=== PATIENT | female | born 1975 | race Caucasian/White ===

== ENCOUNTER 2019-03-26 19:09 | Inpatient (IN) ==
[2019-03-26] MEDS ORDERED: ASPIRIN PO ONE (19:29)
[2019-03-26] MEDS ORDERED: NITROGLYCERIN TOP ONE (19:36)
[2019-03-26] MEDS ORDERED: MORPHINE IV ONE (19:36)
[2019-03-26] MEDS ORDERED: ZOFRAN IV ONE (19:36)
--- NOTE | 2019-03-26 20:12 | Diag Imaging Result Doc PS360 ---
EXAM: CHEST-2 VIEWS INDICATION: CP TECHNIQUE: 2 views COMPARISON: 12/12/2018 FINDINGS: The lungs are grossly clear. There is no discrete pleural fluid collection or pneumothorax. There are stable CABG changes. The cardiomediastinal silhouette and central vasculature are unremarkable, otherwise. IMPRESSION: No evidence of acute pathology by plain radiograph. Electronically signed by Arturo Che 03/26/2019 8:10 PM
[2019-03-26 20:58] LABS: INR 0.91; PROTIME 12.7 Seconds (11.0-16.0)
[2019-03-26 20:59] LABS: PTT 26.9 Seconds (22.3-41.8)
[2019-03-26 21:07] LABS: BASO# 0.06 X1000 (0.0-0.2); BASO% 0.7 % (0.0-0.8); EOS# 0.35 X1000 (0.0-0.7); EOS% 3.9 % (0.0-10.0); HEMATOCRIT 37.7 % (37.0-47.0); HEMOGLOBIN 12.9 g/dL (12.0-16.0); IMM GRAN# 0.04 X1000 (0.0-0.04); IMM GRAN% 0.4 % (0.0-0.5); LYMPH% 35.8 % (20.5-51.1); MCH 28.1 PG (27-31); MCHC 34.2 g/dL (33-37); MCV 82.1 FL (81-99); MONO# 1.02 X1000 (0.11-0.59); MONO% 11.4 % (1.7-9.3); NEUT# 4.27 X1000 (1.4-6.5); NEUT% 47.8 % (42.2-75.2); PLT 283 X1000 (130-400); RBC 4.59 XMIL (4.2-5.4); WBC 8.94 X1000 (4.8-10.8)
[2019-03-26 21:26] LABS: ALBUMIN 3.8 g/dL (3.5-5.0); CALCIUM 8.7 mg/dL (8.8-10.2); CREATININE 1.7 mg/dL (0.5-0.9); POTASSIUM 5.6 mmol/L (3.5-5.1); TOTAL BILIRUBIN 0.2 mg/dL (0.20-1.00)
[2019-03-26] MEDS ORDERED: HUMULIN R IV ONE ×2 (21:30→23:12)
[2019-03-26] MEDS ORDERED: NS 1,000 ML IV ONE (21:36)
[2019-03-26] MEDS ORDERED: LASIX IV ONE (21:36)
[2019-03-26] MEDS ORDERED: LOVENOX SUBQ ONE (21:44)
--- NOTE | 2019-03-26 21:45 | PROVIDER DOCUMENTATION ---
This chart was entered by Oscar Brady Scribe, acting as scribe for Isaiah Manley MD. HPI-Musculoskeletal Pain/Inj - GENERAL Chief Complaint: Generalized Pain Stated Complaint: CHEST PAIN Time Seen by Provider: 03/26/19 19:26 Source: patient - HX OF PRESENT ILLNESS-MUSKULOSKELTAL Nature of Presenting Problem: Pt is a 43 yof who presents to the ED with a CC of neck pain. Pt states she is having neck pain and describes the pain as an ache. Pt states it hurts to turn her neck and the pain comes and goes. Pt states she had quadruple bypass on December 16, and previously had a heart attack and had two stents inserted. Pt also complains of feeling nauseas without vomiting and states she constantly feels hot and sweaty. Pt states she is a former smoker and states she quit three months ago. Quality of Pain: reports: aching Severity in ED: mild Onset/Duration: 24 hours ago Timing: still present Any recent injury?: No Locality of Occurance: Home Similar Symptoms Previously?: No Recently seen or treated by another doctor?: No - BACK & NECK PAIN/INJURY Back/Neck Pain Location: reports: C-spine Context / Method of Injury: reports: unknown History of Chronic Neck or Back Pain?: No Review of Systems - Adult - REVIEW OF SYSTEMS - ADULT Constitutional: reports: see HPI. denies: chills, fever, fatique, night sweats, weight gain Eyes: reports: no symptoms reported Ears, Nose, Mouth & Throat: reports: no symptoms reported Cardiovascular: reports: see HPI Respiratory: reports: no symptoms reported Gastrointestinal: reports: see HPI, nausea. denies: vomiting Genitourinary: reports: no symptoms reported Musculoskeletal: reports: see HPI, neck pain Integumentary: reports: no symptoms reported Neurological: reports: no symptoms reported Psychiatric: reports: no symptoms reported Endocrine: reports: no symptoms reported Hematologic/Lymphatic: reports: no symptoms reported Allergic/Immunologic: reports: no symptoms reported All Other Systems: Reviewed and Negative Past History - Adult - PAST MEDICAL HISTORY-ADULT Review of Records: reports: Old Records Reviewed, Nursing Assessment Review, M edications Reviewed, Social history reviewed & non-contributory. Major Childhood Illnesses: reports: denies history Cardiovascular: reports: cardiac disease, HTN, NV, other Respiratory: reports: asthma Gastrointestinal: reports: denies history Obstetrical/Gynecological: reports: denies history Genitourinary: reports: denies history Musculoskeletal: reports: chronic pain Neurological: reports: denies history Psychiatric: reports: denies history Endocrine/Immune: reports: Diabetes Diabetes Type: Type 1 Other Conditions: reports: other - PRIOR SURGERIES/PROCEDURES Surgical/Procedure History: reports: hysterectomy, BTL, , other - IMMUNIZATION STATUS Childhood Immunizations: See Nurse Assessment Flu Vaccine: See Nurse Assessment - FAMILY HISTORY Family History: reviewed, not pertinent - SOCIAL HISTORY Smoking: non-smoker, quit less than 1 year (3 months) Substance Use: none/never, denies Alcohol Use Frequency: never Physical Exam-Injury Related - Physical Exam-Injury Related Initial Vital Signs Reviewed: Yes General Appearance: appears well, alert, mild distress. negative: severe distress, cachetic, obese, anxious, lethargic, slow to respond, obtunded, combative Eyes: PERRL/EOMI. negative: photophobia, sclera injected, scleral icterus Neck: limited range of motion, pain on movement, tender lateral, tender midline. negative: non-tender, full range of motion, ecchymosis, muscle spasm, thyromegaly Respiratory: chest non-tender, lungs clear, normal breath sounds, no pleuratic chest pain, no respiratory distress, no accessory muscle use. negative: accessory muscle use, crackles, rales, rhonchi, stridor, wheezing, dull on percussion, prolonged expiration Cardiovascular: normal peripheral pulses, regular rate, rhythm, no edema, no gallop, no JVD, no murmur. negative: tachycardia, diastolic murmur, extra beats, friction rub, irregularly irregular Abdominal Exam: non tender, soft. negative: rebound, tenderness, hernia, mass, hepatomegaly, splenomegaly Extremity: normal range of motion, non-tender. negative: calf tenderness, deformity, erythema, inflammation, joint effusion Integumentary: normal color, warm/dry. negative: jaundice, mottled, pallor, petechiae, purpura, rash, swelling Neurologic: grossly normal, no motor/sensory deficits. negative: abnormal gait, aphasia, EOM palsy, facial droop, focal weakness, motor weakness Psych/Mental Status: normal mood/affect, normal thought content, normal thought process, oriented x 3. negative: disoriented x 3, anxious, disheveled, depressed affect Progress - PLAN OF CARE/RESULTS Progress/Plan/Lab Results: Vital Signs - 8 hr 03/26/19 19:12 03/26/19 20:52 Temperature 98.4 F Pulse Rate 80 75 Respiratory Rate 18 18 Blood Pressure 161/84 112/65 O2 Sat by Pulse Oximetry 100 97 Laboratory Results - last 24 hr 03/26/19 03/26/19 03/26/19 19:50 19:50 19:50 WBC 8.94 RBC 4.59 Hgb 12.9 Hct 37.7 MCV 82.1 MCH 28.1 MCHC 34.2 RDW Std Deviation 14.0 Plt Count 283 MPV Not Reportable Immature Gran % (Auto) 0.4 Neut % (Auto) 47.8 Lymph % (Auto) 35.8 Tyler % (Auto) 11.4 H Eos % (Auto) 3.9 Baso % (Auto) 0.7 Immature Gran # (Auto) 0.04 Neut # (Auto) 4.27 Lymph # (Auto) 3.20 Tyler # (Auto) 1.02 H Eos # (Auto) 0.35 Baso # (Auto) 0.06 Segmented Neutrophils Cancelled Band Neutrophils Cancelled Lymphocytes Cancelled Monocytes Cancelled Eosinophils Cancelled Basophils Cancelled Metamyelocytes Cancelled Myelocytes Cancelled Promyelocytes Cancelled Nucleated RBCs Cancelled Atypical Lymphocytes Cancelled Blast Cells Cancelled Hypochromia Cancelled Vacuolization Cancelled Toxic Granulation Cancelled Dohle Bodies Cancelled Large Platelets Cancelled Polychromasia Cancelled Poikilocytosis Cancelled Basophilic Stippling Cancelled Anisocytosis Cancelled Microcytosis Cancelled Macrocytosis Cancelled Spherocytes Cancelled Sickle Cells Cancelled Target Cells Cancelled Ovalocytes Cancelled Stomatocytes Cancelled Null-[place] Bodies Cancelled Shanon Cells Cancelled Unidentified Cells Cancelled Schistocytes Cancelled PT INR PTT (Actin FS) Sodium 128 L Potassium 5.6 H Chloride 95 L Carbon Dioxide 21 L Anion Gap 12 BUN 37 H Creatinine 1.7 H Estimated GFR/1.73 m2 33 BUN/Creatinine Ratio 22 Glucose 560 H* Calculated Osmolality 291 Calcium 8.7 L Total Bilirubin 0.20 AST < 5 L ALT < 5 L Alkaline Phosphatase 198 H Creatine Kinase 58 Troponin T [id number] Pept 9733 H Total Protein 7.0 Albumin 3.8 Globulin 3.0 Albumin/Globulin Ratio 1.0 Acetone Level 03/26/19 03/26/19 03/26/19 19:50 19:50 19:50 WBC RBC Hgb Hct MCV MCH MCHC RDW Std Deviation Plt Count MPV Immature Gran % (Auto) Neut % (Auto) Lymph % (Auto) Tyler % (Auto) Eos % (Auto) Baso % (Auto) Immature Gran # (Auto) Neut # (Auto) Lymph # (Auto) Tyler # (Auto) Eos # (Auto) Baso # (Auto) Segmented Neutrophils Band Neutrophils Lymphocytes Monocytes Eosinophils Basophils Metamyelocytes Myelocytes Promyelocytes Nucleated RBCs Atypical Lymphocytes Blast Cells Hypochromia Vacuolization Toxic Granulation Dohle Bodies Large Platelets Polychromasia Poikilocytosis Basophilic Stippling Anisocytosis Microcytosis Macrocytosis Spherocytes Sickle Cells Target Cells Ovalocytes Stomatocytes Null-[place] Bodies Shanon Cells Unidentified Cells Schistocytes PT 12.7 INR 0.91 PTT (Actin FS) 26.9 Sodium Potassium Chloride Carbon Dioxide Anion Gap BUN Creatinine Estimated GFR/1.73 m2 BUN/Creatinine Ratio Glucose Calculated Osmolality Calcium Total Bilirubin AST ALT Alkaline Phosphatase Creatine Kinase Troponin T < 0.010 [id number] Pept Total Protein Albumin Globulin Albumin/Globulin Ratio Acetone Level NEGATIVE Orders Category Date Time Status Cardiac Monitoring DIRECTED Care 03/26/19 19:29 Active Oxygen Therapy- ED Nursing DIRECTED Care 03/26/19 19:29 Active Saline Loc NOW Care 03/26/19 19:29 Active CHEST-2 VIEWS [RAD] Stat Exams 03/26/19 19:29 Completed ACETONE SERUM [CHEM] Stat Lab 03/26/19 19:50 Completed CBC WITH ELECTRONIC DIFF [HEME] Stat Lab 03/26/19 19:50 Completed CK PROFILE [SP CHEM] Stat Lab 03/26/19 19:50 Completed COMPREHENSIVE METABOLIC PANEL [CHEM] Stat Lab 03/26/19 19:50 Completed PRO B-NATRIURETIC PEPTIDE Stat Lab 03/26/19 19:50 Completed PROTIME WITH INR [COAG] Stat Lab 03/26/19 19:50 Completed PTT [COAG] Stat Lab 03/26/19 19:50 Completed TROPONIN T Stat Lab 03/26/19 19:50 Completed 0.9% Sodium Chloride Inj [Ns] 1,000 ml Med 03/26/19 21:36 Active IV 999 mls/hr Aspirin Med 03/26/19 19:29 Discontinued 325 mg PO NOW ONE Furosemide [Lasix] Med 03/26/19 21:36 Discontinued 60 mg IV NOW ONE Insulin Human Regular [Humulin R] Med 03/26/19 21:30 Discontinued 10 unit IV NOW ONE Morphine Med 03/26/19 19:36 Discontinued 2 mg IV NOW ONE Nitroglycerin Med 03/26/19 19:36 Discontinued 1 inch TOP NOW ONE Ondansetron [Zofran] Med 03/26/19 19:36 Discontinued 4 mg IV NOW ONE CP/SOB/Palp >45 yrs of Age Stat Oth 03/26/19 19:29 Ordered Result Diagrams: 03/26/19 19:50 03/26/19 19:50 - REASSESSMENT Reassessment #1 Time Reassessed: 21:34 Status: improving (Patient sleeping, when awakened by me, states she still hurts a little in her neck and shoulders. Has been given ASA, NTP, morphine/zofran. Blood sugar is 560, given IV insulin and IVF. Because of heart disease and elevated BNP, will also give lasix.) - EKG 1 Time of EKG reading by physician:: 19:28 EKG Read and Signed by:: Isaiah Manley EKG Interpretation (*Must complete 3 of following elements*): Abnormal (Possible left artrial enlargement; ST & T wave abnormality, consider inferolateral ischemia; Abnormal ECG) Rate: 78 Rhythm: NSR [place]: left QRS: normal [place] Interval: normal ST Wave: non-specific ST changes Prior EKG Comparison: changes noted - XRAY 1 XRAY: Bilateral XRAY Study: Chest Impression: See EMR Report (EXAM: CHEST-2 VIEWS INDICATION: CP TECHNIQUE: 2 views COMPARISON: 12/12/2018 FINDINGS: The lungs are grossly clear. There is no discrete pleural fluid collection or pneumothorax. There are stable CABG changes. The cardiomediastinal silhouette and central vasculature are unremarkable, otherwise. IMPRESSION: No evidence of acute pathology by plain radiograph. Electronically signed by Arturo Che 03/26/2019 8:10 PM 03/26/192009 Interpreting Physician: Arturo Che MD Dictated Date/Time: 03/26/192008 cc: Isaiah Manley MD; None,PCP) - CONSULTS/PCP/HOSPITALIST Notification #1 *Consult/PCP/Hospitalist*: Luiz paged at [phone] Time Discussed: 21:39 Reason/Comments: Please send to [facility] for admission/observation Consult Disposition: Will see in ED #2 Consult: Suraj paged at 2139 Time Discussed: 21:43 Consult Disposition: Admit (to [facility]) Departure - Departure Date of Disposition Decision: 03/26/19 Time of Disposition Decision: 21:43 DIAGNOSIS: 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 These instructions are being provided to you so you can have an understanding of how t o care for yourself upon discharge. Upon discharge from the Emergency Department, you are responsible for making arrangements for follow-up care by a physician of your choice. Take all prescribed medications as directed. Return to the Emergency Department immediately for any new or worsening symp toms. You may call the Physician Referral phone number at [phone] to obtain a list of Physicians who are taking new patients. Referrals and Follow-Ups: None,PCP [Primary Care Provider] - - Critical Care Note This patient required my direct & personal management of CC.: Yes Total Time (mins): 40 ([facility] in peril) Critical Care Statement: This patient required my direct personal management to treat or rule out processes, the absence of which, could potentiallly result in sudden, clinically significant life or limb threatening deterioration. Attestation - Physician/ PATRICIA Attestation Patient care was provided by Advanced Practice Provider:: No The physician spent face to face time with patient:: Yes Advanced Practice Provider documentation review:: Supervising physician onsite and consulted in the evaluation and care of this patient. The physician did have a face to face encounter with the patient. This chart was documented by the indicated scribe, (Oscar Brady, Tj) and accurately reflects the services I performed and decisions made by me, Isaiah Manley MD, as attested by the provider's signature.
[2019-03-27] MEDS ORDERED: ZOFRAN IV PRN (02:03)
[2019-03-27] MEDS ORDERED: HUMULIN R SUBQ ONE (03:36)
--- NOTE | 2019-03-27 04:08 | HISTORY AND PHYSICAL ---
PRIMARY CARE PHYSICIAN: None. CHIEF COMPLAINT: Chest pain. HISTORY OF PRESENTING ILLNESS: A 43-year-old female with a history of coronary disease, asthma, diabetes mellitus type 1, hypertension, who underwent coronary artery bypass recently. Had presented to the emergency department with persistent chest pain. She was initially seen at [facility]. She was given nitroglycerin and morphine which did help improve the chest pain somewhat. Her case was discussed with Cardiology, who recommended the patient be transferred to [facility] for further evaluation and management. At time of my examination, the patient still complained of chest pain but denied any headache, fever, chills, nausea, vomiting, diarrhea, hemoptysis, or weight changes. PAST MEDICAL HISTORY: Includes coronary artery disease, asthma, diabetes mellitus type 1 and hypertension. PAST SURGICAL HISTORY: Coronary artery bypass, hysterectomy, and hemorrhoidectomy. ALLERGIES: Phenergan and tramadol. CURRENT MEDICATIONS: Include aspirin 325 mg p.o. daily, Lipitor 40 mg p.o. at bedtime, gabapentin 300 mg p.o. daily, Novolin 70/30 of 20 units in the morning and 25 units at night, [place] 7.5 one p.o. q.6 hours, lisinopril 2.5 mg p.o. at bedtime, metoprolol 25 mg p.o. daily. SOCIAL HISTORY: She is a former smoker. No history of alcohol or illicit drug use. FAMILY HISTORY: Positive for coronary artery disease in mother and father. REVIEW OF SYSTEMS: Fourteen point review of systems as listed in HPI. Other systems negative. PHYSICAL EXAMINATION: GENERAL: Cooperative, friendly female. She is resting more comfortably now. VITAL SIGNS: Temperature 97.9 degrees, pulse 80, respirations 20, blood pressure 117/68. HEENT: Atraumatic, normocephalic. Extraocular movements intact. PERRLA. NECK: No masses. CHEST: Bibasilar rales. CARDIOVASCULAR: Regular rate and rhythm. ABDOMEN: Soft, positive bowel sounds. EXTREMITIES: No edema. NEUROLOGIC: She is awake, alert, oriented x3. GENITOURINARY: No bladder distention. SKIN: Warm. LABORATORIES AND STUDIES: Troponin 0.010. ProBNP 9073. Sodium 128, potassium 5.6, chloride 95, CO2 is 21, BUN is 37, creatinine 1.7, glucose 560. WBCs 8.94, hemoglobin 12.9, hematocrit 37.7, platelets 283,000. Chest x-ray, no evidence of any acute pathology. ASSESSMENT: A 43-year-old female with a history of coronary artery disease, diabetes mellitus type 1 and hypertension, who had presented initially to [facility] due to patient having persistent chest pain. She described it as pressure-like. Her case was discussed with Cardiology, who recommended patient be transferred to [facility] for further evaluation and management. 1. Unstable angina. 2. Coronary artery disease. 3. Diabetes mellitus type 1 with hyperglycemia. 4. Hypertension. PLAN: 1. We will admit patient to [facility]. 2. Continue with cardiac workup. 3. We will trend troponin. 4. We will use nitroglycerin and morphine p.r.n. chest pain. 5. We will consult Cardiology. 6. We will monitor blood glucose and put patient on sliding scale insulin regimen. 7. Monitor blood pressure. Resume antihypertensive agent. 8. We will put patient on DVT prophylaxis with Lovenox. 9. We will continue to follow, and reassess and make further recommendation based on patient's clinical course. cc: Tye Ruelas MD
[2019-03-27] MEDS: MORPHINE IV PRN ×4 (04:16→23:56)
[2019-03-27] MEDS: HEPARIN SUBQ SCH ×2 (06:19→16:28)
[2019-03-27] MEDS: HUMULIN R SUBQ SCH ×4 (06:19→20:50)
[2019-03-27] MEDS: NEURONTIN PO SCH (08:39)
[2019-03-27] MEDS ORDERED: ASPIRIN PO SCH (09:00)
[2019-03-27] MEDS: LOPRESSOR PO SCH ×2 (09:02→21:16)
--- NOTE | 2019-03-27 09:24 | EKG Report ---
Test Performed on : 03/26/2019 7:19:16 PM Test Reason : ER Blood Pressure : / mmHG Vent. Rate : 078 BPM Atrial Rate : 078 BPM P-R Int : 148 ms QRS Dur : 088 ms QT Int : 382 ms P-R-T Axes : 053 020 158 degrees QTc Int : 435 ms Normal sinus rhythm. Possible Left atrial enlargement ST & T wave abnormality, consider inferolateral ischemia Abnormal ECG When compared with ECG of 12-DEC-2018 19:41, T wave inversion more evident in Lateral leads Unconfirmed Result
--- NOTE | 2019-03-27 10:02 | PROGRESS NOTE ---
DATE: 03/27/2019 SUBJECTIVE: Patient reports persistent chest pain is gone. She reports only is on mild to moderate neck pain. Denies any other complaints. OBJECTIVE: Vital Signs: Temperature 98.1 degrees, heart rate 82, respiratory rate 20, blood pressure 132/73, O2 saturation 99% on room air. General: This is a 43-year-old female lying in bed, in no acute distress. Cardiovascular: S1, S2 heard. No murmurs, gallops, or rubs. Regular rate and rhythm. Respiratory: Minimal bibasilar rales but patient is not using any accessory muscles or having work of breathing. Abdomen: Soft, nontender to palpation. Bowel sounds present. No organomegaly. No clubbing, cyanosis, or edema. Peripheral pulses present in both legs. Neurological: Patient is alert, oriented x3. Moves 4 extremities. LABORATORY DATA: Reviewed. There is no troponins checked, just 1 has been done yesterday around 7:50 p.m. ASSESSMENT/PLAN: 1. Unstable angina. 2. Coronary artery disease with recent coronary artery bypass grafting on December 2018. 3. Diabetes mellitus type 2 with hyperglycemia. 4. Hypertension. Patient has been admitted to the hospital for chest pain. She has a recent coronary artery bypass grafting done by Dr. Haji at [facility] on December 2018 and she had a recent follow up at the end of February 2019. At this time, considering her medical conditions we have also consulted cardiology. Troponin has not been trended yet so we are going to start today 3 more sets. We are going to check an echocardiogram summary. We will monitor this patient closely. I think considering her high risk for acute coronary syndrome we will need to do a Lexiscan tomorrow. The patient will be on nothing by mouth since midnight. For blood pressure we will continue with current management. cc: MD Tye Ortiz MD MTDD
--- NOTE | 2019-03-27 15:13 | CONSULTATION ---
DATE OF CONSULTATION: 03/27/2019 IMPRESSION: 1. Neck pain. Clinical presentation atypical for myocardial ischemia. 2. Atherosclerotic coronary disease. B. Status post previous coronary angioplasty/stenting approximately 4 years ago. B. Status post more recent coronary bypass grafting approximately 4 months ago. Is noteworthy the patient's anginal equivalent is described as nausea, bilateral arm discomfort and neck discomfort radiating to the jaw without chest discomfort. 3. Previous cigarette use, discontinued 4 months ago. 4. Insulin-dependent diabetes mellitus for many years. 5. Chronic kidney disease. 6. Hypertension. RECOMMENDATIONS: Agree with plans to pursue noninvasive cardiac workup with echocardiography and pharmacologic myocardial perfusion study. Unfortunately, patient has had caffeine this morning and pharmacologic myocardial perfusion study has been postponed until tomorrow. HISTORY: This 43-year-old white female with past history of atherosclerotic coronary disease as outlined above, previous chronic cigarette use discontinued 4 months ago, insulin-dependent diabetes mellitus for many years, chronic kidney disease, hypertension, was admitted through emergency room for evaluation of symptoms suspicious for possible myocardial ischemia. She relates that her symptoms related to her heart in the past had consisted of nausea, bilateral arm discomfort with radiation to the neck and jaw. This has not recurred since her bypass. However she has had some neck discomfort of late. She describes a pain in the posterior neck that can last hours and seems to be worse if she is sitting up or standing but seems to be better she is lying down. There have been no other associated symptoms. Discomfort may last hours at a time. She is not aware of any previous neck or spine problems. PAST MEDICAL HISTORY: 1. Atherosclerotic coronary disease as outlined above. 2. Insulin-dependent diabetes mellitus. 3. Hypertension. 4. Chronic kidney disease. Current creatinine 1.7. PAST SURGICAL HISTORY: Includes coronary bypass grafting, hysterectomy, and hemorrhoidectomy. ALLERGIES: She is allergic or intolerant of Phenergan and tramadol. MEDICATIONS PRIOR TO ADMISSION: As listed. Hyperlipidemia. SOCIAL HISTORY: She quit smoking 4 months ago. She does not use alcohol. She is disabled. FAMILY HISTORY: Positive for coronary disease and diabetes mellitus. REVIEW OF SYSTEMS: Pulmonary: Negative. Gastrointestinal: Negative. Constitutional: Negative. Remainder review of systems negative/noncontributory with 14 total systems reviewed. PHYSICAL EXAMINATION: General: This is a thin middle-aged white female in no distress on room air. Vital signs: Blood pressure 94/59, heart rate 90 and regular. Oxygen saturation 97% on nasal cannula oxygen. HEENT: Extraocular movements intact. Mucous membranes are moist. Neck: Supple without jugular venous distention. There are no carotid bruits. Chest: Clear to auscultation. Cardiac: Reveals a regular rate and rhythm without appreciable rub or gallop. Abdomen: Soft. Bowel sounds normal. Extremities: Without edema. Neurologic: Reveals her to be alert and fully oriented. Speech is fluent. She moves all 4 extremities equally well. DATA: 12-lead EKG demonstrates sinus rhythm, left atrial abnormality and ST and T-wave abnormality, consider lateral ischemia. LABORATORY DATA: Includes white blood cell count 8.94, hematocrit 37.7, hemoglobin 12.9, platelet count 283,000. Sodium 128, potassium 5.6, chloride 95, BUN 37, creatinine 1.7, carbon dioxide 21, glucose 560. Initial troponin T less than 0.01. cc: MD Tye Vinson MD
[2019-03-27] MEDS: LIPITOR PO SCH (21:15)
[2019-03-27] MEDS: PRINIVIL PO SCH (21:15)
[2019-03-28] MEDS: HUMULIN R SUBQ SCH (06:09)
[2019-03-28] MEDS: HEPARIN SUBQ SCH ×2 (06:09→16:12)
[2019-03-28 06:12] LABS: BASO# 0.03 X1000 (0.0-0.2); BASO% 0.2 % (0.0-0.8); EOS# 0.37 X1000 (0.0-0.7); EOS% 2.8 % (0.0-10.0); HEMATOCRIT 42.4 % (37.0-47.0); HEMOGLOBIN 13.7 g/dL (12.0-16.0); IMM GRAN# 0.02 X1000 (0.0-0.04); IMM GRAN% 0.2 % (0.0-0.5); LYMPH# 3.13 X1000 (1.2-3.4); LYMPH% 23.8 % (20.5-51.1); MCH 26.6 PG (27-31); MCHC 32.3 g/dL (33-37); MCV 82.2 FL (81-99); MONO# 0.96 X1000 (0.11-0.59); MONO% 7.3 % (1.7-9.3); NEUT# 8.66 X1000 (1.4-6.5); NEUT% 65.7 % (42.2-75.2); PLT 242 X1000 (130-400); RBC 5.16 XMIL (4.2-5.4); RDW 14.4 % (11.5-14.5); WBC 13.17 X1000 (4.8-10.8)
[2019-03-28 06:37] LABS: POTASSIUM 5.9 mmol/L (3.5-5.1)
[2019-03-28 06:38] LABS: CALCIUM 8.6 mg/dL (8.8-10.2); CREATININE 1.4 mg/dL (0.5-0.9)
--- NOTE | 2019-03-28 07:20 | ECHO REPORT ---
ORDER DATE: 03/27/2019 INTERPRETING PHYSICIAN: Dr. Petty CLINICAL INDICATIONS: Coronary heart disease, chest pain. REQUESTING PHYSICIAN: Dr. Stanley. M-MODE MEASUREMENTS: Left ventricle end diastole: 4.7 cm. Left ventricle end systole: 3.5 cm. Posterior wall: 0.7 cm. Interventricular septum: 0.7 cm. Left atrium: 2.8 cm. Aortic diameter: 2.3 cm. SUMMARY OF 2-DIMENSIONAL IMAGING: The left ventricular function is mildly decreased. Ejection fraction estimated at 50-55%. There is wall motion abnormality involving the base of the inferior wall that appears to be akinetic to dyskinetic. The remaining gaitan show normal contractility. The aortic valve was normal. Color flow mapping unremarkable. The mitral valve was normal. Color flow mapping unremarkable. Pulse wave Doppler of mitral inflow shows "normal" E/A ratio. Tissue Doppler of septal and lateral mitral annulus appears to be normal. There is no diastolic dysfunction. Pulmonary valve shows mild degree of regurgitation. Tricuspid valve shows mild degree of regurgitation. The pulmonary pressure is estimated at 35 mmHg. There is no pericardial effusion, mass and no thrombus. The right-sided chambers appear to be normal. Clinical correction recommended. cc: MD Salvador Gamino MD Lloyd James, MD
--- NOTE | 2019-03-28 08:00 | EKG Report ---
Test Performed on : 03/28/2019 06:54:55 AM Test Reason : Chest pain Blood Pressure : / mmHG Vent. Rate : 092 BPM Atrial Rate : 092 BPM P-R Int : 136 ms QRS Dur : 092 ms QT Int : 358 ms P-R-T Axes : 056 030 149 degrees QTc Int : 442 ms Normal sinus rhythm. Biatrial enlargement ST & T wave abnormality, consider lateral ischemia Abnormal ECG When compared with ECG of 26-MAR-2019 19:19, (Unconfirmed) No significant change was found Confirmed by Harvey Gama MD ([id number]) on 03/29/2019 6:18:32 PM
[2019-03-28] MEDS: ASPIRIN PO SCH (08:19)
[2019-03-28] MEDS: NEURONTIN PO SCH (08:19)
[2019-03-28] MEDS: MORPHINE IV PRN ×3 (08:19→20:52)
[2019-03-28] MEDS: HUMALOG SUBQ SCH ×5 (08:20→21:42)
[2019-03-28] MEDS ORDERED: LANTUS INSULIN SUBQ SCH (09:00)
[2019-03-28] MEDS ORDERED: HUMULIN 70/30 SUBQ SCH ×2 (09:00→17:00)
[2019-03-28] MEDS: LOPRESSOR PO SCH ×2 (09:16→20:52)
[2019-03-28] MEDS ORDERED: LEXISCAN ONE (11:40)
--- NOTE | 2019-03-28 12:26 | PROGRESS NOTE ---
DATE: 03/28/2019 SUBJECTIVE: The patient reports no chest pain. She was feeling nauseated. Mild neck pain. No other complaints noted. OBJECTIVE: Vital Signs: Temperature 97.8 degrees, heart rate 94, respiratory rate 15, blood pressure 128/65, O2 saturation 100% on room air. General Examination: This is a 43-year-old, female lying in bed, in no acute distress. Cardiovascular Examination: S1 and S2 heard. No murmurs, gallops, or rubs. Regular rate and rhythm. Respiratory Examination: Minimal bibasilar rales. Patient is not using any accessory muscles or having work of breathing. Abdomen: Soft. Nontender to palpation. Bowel sounds present. No organomegaly. Extremities: No clubbing, cyanosis, or edema. Peripheral pulses present in both legs. Neurological Examination: The patient is alert and oriented x3. Moves 4 extremities. Laboratory Data: We have checked troponin which had been checked yesterday at 3:00 p.m. which was normal and also at 9:00 which was again normal. ASSESSMENT AND PLAN: 1. Unstable angina. 2. Coronary artery disease with recent coronary artery bypass graft in December 2018. 3. Diabetes mellitus type 2 with hyperglycemia. 4. Hypertension. PLAN: At this point, the patient is going to have a Lexiscan stress test. The work from home has been consulted. We will follow recommendations. Also, the patient was noted to have a very elevated blood sugar of almost 700 so we have talked with the patient to switch to a basal insulin, in this case Lantus and sliding scale insulin, Humalog high doses. We will see how this patient does. The echocardiogram had been done yesterday, results reviewed. I think at this point, if the Lexiscan is okay and okay with work from home, the patient can be discharged later on today. cc: Salvador Demarco MD
--- NOTE | 2019-03-28 14:49 | Diag Imaging Result Document ---
PROCEDURE NAME: MYOCARDIAL PERF SCAN, STR/REST - 03/27/2019 INDICATION: Chest pain. History of bypass. PROCEDURES PERFORMED: 1. Lexiscan stress. 2. One-day stress/rest myocardial perfusion imaging. PROCEDURE IN DETAIL: Ms. Hutson was brought to the nuclear laboratory and had a resting study with injection of 10.7 mCi of technetium-99m sestamibi with usual imaging protocol utilized. Subsequently was brought back and had a Lexiscan stress. At peak stress, was injected with 30.1 mCi of technetium-99m sestamibi with usual imaging protocol utilized. FINDINGS: LEXISCAN STRESS RESULTS: 1. Baseline EKG shows sinus rhythm. T-wave inversions are noted somewhat diffusely with mild ST depression. 2. Lexiscan stress did not demonstrate any clear evidence of ischemic-related EKG changes or significant arrhythmias. Occasional PVCs. The ST-segment changes were no different during stress then at baseline. PERFUSION IMAGING RESULTS: 1. No evidence of abnormal extracardiac uptake. 2. TID ratio is 1.34, but on review of splash images I do not see any clear obvious evidence of transient ischemic dilatation. 3. Perfusion imaging shows a moderate size defect involving the inferior apical, mid inferior and basal inferior segments. The defect is severe intensity and fixed in the apex. This portion is somewhat small and localized to the inferior apex. The defect then extends up into the mid inferior and basal inferior segments where it is much more diffuse and mild. It is reversible in these mid and basal inferior segments suggesting the possibility of more soft tissue attenuation in these more mid and basal inferior segments vs ischemia. Notably there is some inferior gut uptake interfering with interpretation of the rest images in the inferior wall. 4. The ejection fraction is reduced at 44% with an end-diastolic volume of 98, end-systolic volume 55. There is septal wall motion consistent with a history of previous bypass. In addition there does appear to be some hypokinesis in the more distal inferior wall. cc: MD Salvador Merino MD MTDD
[2019-03-28 17:46] LABS: CALCIUM 8.6 mg/dL (8.8-10.2); CREATININE 1.4 mg/dL (0.5-0.9); POTASSIUM 5.6 mmol/L (3.5-5.1)
--- NOTE | 2019-03-28 19:52 | PROGRESS NOTE ---
DATE: 03/28/2019 SUBJECTIVE: Patient denies chest discomfort or shortness of breath. She continues with some mild neck pain. OBJECTIVE: Vital Signs: Blood pressure 130/68, heart rate 88 and regular, oxygen saturation 100% on room air. Neck: There is no significant jugular venous distention. Chest: Clear to auscultation. Cardiac Exam: Regular rate and rhythm without appreciable murmur or gallop. There is no evidence of peripheral edema. LABORATORY DATA: Includes white blood cell count 13.17, hematocrit 42.4, hemoglobin 13.7, platelet count 242,000. Sodium 126, potassium 5.6, chloride 93, carbon dioxide 18, BUN 45, creatinine 1.4, glucose 649. Initial troponin less than 0.01. Followup troponin less than 0.01. Lexiscan sestamibi study demonstrates inferior abnormalities on perfusion study suggesting some prior infarction in distribution of distal right coronary artery with some joel-infarct ischemia. There is no large areas of reversibility. Left ventricular ejection fraction is 44%. Echocardiography demonstrates left ventricular ejection fraction of 50% to 55%. There was some akinesis involving the base of the inferior wall. IMPRESSION: 1. Recent neck discomfort. Overall, patient's clinical presentation is atypical for myocardial ischemia. Serial troponins are normal despite extended duration of discomfort. 2. Atherosclerotic coronary disease. 3. Status post previous coronary angioplasty/stenting approximately 4 years ago. 4. Status post recent coronary bypass surgery approximately 4 months ago. 5. Lexiscan myocardial perfusion study today suggests some prior infarction in the inferior wall with possibly some associated joel-infarct ischemia. There is no large-scale inducible ischemia. Left ventricular ejection fraction low normal. 6. Insulin-dependent diabetes mellitus for many years. Patient's glucose is significantly elevated. 7. Chronic kidney disease. 8. Hypertension. RECOMMENDATIONS: 1. Favor continued medical management of patient's coronary atherosclerosis. Continue metoprolol and aspirin as well as atorvastatin. 2. Smoking cessation reinforced. 3. No further cardiovascular suggestions. I will see patient further on an as needed basis. She has seen Dr. Owen Dee in the past for her coronary disease and should follow up with him in approximately 3 or 4 weeks. cc: Darwin Dillard MD
[2019-03-28] MEDS: LIPITOR PO SCH (20:52)
[2019-03-28] MEDS: PRINIVIL PO SCH (20:52)
[2019-03-29] MEDS: MORPHINE IV PRN ×3 (03:41→16:16)
[2019-03-29 05:35] LABS: EOS% 3.8 % (0.0-10.0); HEMATOCRIT 39.3 % (37.0-47.0); HEMOGLOBIN 12.8 g/dL (12.0-16.0); LYMPH% 36.5 % (20.5-51.1); MCH 26.7 PG (27-31); MCHC 32.6 g/dL (33-37); MONO% 8.1 % (1.7-9.3); PLT 206 X1000 (130-400); RBC 4.79 XMIL (4.2-5.4); RDW 14.4 % (11.5-14.5); WBC 9.67 X1000 (4.8-10.8)
[2019-03-29 05:36] LABS: BASO# 0.04 X1000 (0.0-0.2); BASO% 0.4 % (0.0-0.8); EOS# 0.37 X1000 (0.0-0.7); IMM GRAN# 0.02 X1000 (0.0-0.04); IMM GRAN% 0.2 % (0.0-0.5); LYMPH# 3.53 X1000 (1.2-3.4); MONO# 0.78 X1000 (0.11-0.59); NEUT# 4.93 X1000 (1.4-6.5)
[2019-03-29] MEDS: HUMALOG SUBQ SCH ×3 (06:13→15:21)
[2019-03-29] MEDS: HEPARIN SUBQ SCH (06:13)
[2019-03-29 06:22] LABS: CREATININE 1.2 mg/dL (0.5-0.9)
[2019-03-29 08:11] LABS: HEMOGLOBIN A1C 11.8 % (4.8-6.0)
[2019-03-29] MEDS: NEURONTIN PO SCH (08:38)
[2019-03-29] MEDS: LANTUS INSULIN SUBQ SCH ×2 (08:38→10:02)
[2019-03-29] MEDS: ASPIRIN PO SCH (08:38)
[2019-03-29] MEDS: LOPRESSOR PO SCH (08:38)
[2019-03-29 11:20] VITALS: BP 118/72
--- NOTE | 2019-03-30 00:07 | DISCHARGE SUMMARY ---
ADMISSION DATE: 03/26/2019 DISCHARGE DATE: 03/29/2019 PRIMARY CARE PHYSICIAN: None. ADMISSION DIAGNOSES: 1. Unstable angina. 2. Coronary artery disease. 3. Diabetes type 1 with hyperglycemia. 4. Hypertension. DISCHARGE DIAGNOSES: 1. Unstable angina, improved, ruled out by Lexiscan. 2. Coronary artery disease with recent coronary artery bypass graft in December of 2018. 3. Diabetes type 2 with hyperglycemia. 4. Hypertension. CONSULTATIONS: Cardiology. SUMMARY OF FINDINGS: This is a 43-year-old female who underwent a coronary artery bypass recently in December of 2018, presented to the emergency room now with persistent chest pain. Was given nitroglycerin and morphine in the ER at [place] where she went initially that improved her pain. Her case had been discussed with Cardiology who recommended that she be transferred over to [facility] for further evaluation and management. She was admitted to [facility]. Had cardiac enzymes x3 sets that were negative. She had a myocardial perfusion scan that was read as normal. We did an echocardiogram on 03/27/2019 that showed an ejection fraction of 50 to 55 percent with mildly decreased left ventricular function. Smoking cessation was reinforced during this hospitalization and it is now felt that she can safely be discharged home. DISCHARGE MEDICATIONS: Aspirin 325 mg 1 p.o. daily, atorvastatin 40 mg p.o. at bedtime, gabapentin 300 mg p.o. daily, lisinopril 2.5 mg p.o. at bedtime, metoprolol 25 mg p.o. b.i.d., [place] 7.5 one p.o. q.6 hours p.r.n., and Lantus 30 units subcutaneous daily. FOLLOW-UP: She needs to follow up with Dr. Dee, her president and chief commercial officer, in the next 3 to 4 weeks. All discharge instructions have been reviewed with the patient and she verbalized understanding. TIME SPENT: This is a 33 minute discharge. Dictated by ISAI Tam for Salvador Demarco MD Addendum: Patient seen and examined by myself. Agree with ISAI note. It reflects my assessment and plan. Patient is being discharged in stable condition. Patient advised to find a PCP. cc: ISAI Tam MD Peter Johnson, MD [facility]
== END 2019-03-29 17:17 | disposition home or self-care (01) | DRG 313 ==
LOC: P.ED 19:09 → SUATTDRO 22:44 → 3S 22:44
PROVIDERS: ATTEND Internal Medicine
CPT/HCPCS: 71020; 71046; 78452; 80048; 80053; 82009; 82550; 82948; 83036; 83880; 84484; 85025; 85610; 85730; 93005; 93010; 93017; 93306; A9270; A9500; J1644; J1650; J1815; J1940; J2270; J2405; J2785; J7030; XXXXX